=== PATIENT | male | born 1985 | race Caucasian/White ===

== ENCOUNTER 2016-12-17 18:25 | Emergency (ER) | payer OTHER ==
[~2016-12-17 18:25] MED LIST: ATARAX PO; ELIMITE60 GM TOP; FLEXERIL PO; FLEXERIL10 MG PO; KETOPROFEN PO; NAPROXEN500 M1 PO; NO MEDICATIONS; ROBAXIN 750750 M1 PO; RONDEC-DM ORAL30 ML PO; TYLENOL #3 PO
[2016-12-17] MEDS ORDERED: TIZANIDINE PO (18:31)
== END 2016-12-17 20:13 | disposition home or self-care (01) ==
LOC: SED 18:25
DX: M77.9 Enthesopathy, unspecified (principal); F17.210 Nicotine dependence, cigarettes, uncomplicated; Z79.899 Other long term (current) drug therapy
CPT/HCPCS: 99283